=== PATIENT | female | born 1960 | race Two or more races ===

== ENCOUNTER 2017-07-01 23:21 | Inpatient (IN) | payer BC ==
[~2017-07-01] VITALS: Ht 152.4 cm; Wt 68.2 kg
[2017-07-02 00:40] LABS: Basophils # (auto) 0.1 uL; Basophils % (auto) 0.5 % (0.0-2.0); Eosinophils # (auto) 0.1 uL; Eosinophils % (auto) 0.7 % (0.0-7.0); Hematocrit 42.9 % (36.0-46.0); Hemoglobin 14.8 g/dL (12.2-16.2); Lymphocytes # (auto) 2.5 uL; Mean Corpuscular Hemoglobin 29.1 pg (28.0-32.0); Mean Corpuscular Hgb Conc. 34.4 g/dL (32.0-36.0); Mean Corpuscular Volume 84.5 fL (80.0-100.0); Monocytes # (auto) 0.7 uL; Monocytes % (auto) 4.8 % (0.0-12.0); Neutrophils # (auto) 11.9 uL; Platelet Count (auto) 306 10^3/uL (140-450); Red Blood Cells 5.08 10^6/uL (4.0-5.20); Red Cell Distribution Width 13.1 % (11.8-14.3); White Blood Cell 15.3 10^3/uL (4.4-10.8)
[2017-07-02 00:53] LABS: Albumin 4.1 g/dL (3.4-5.0); BUN/Creatinine Ratio 26.7; Calcium 8.8 mg/dL (8.5-10.1); Magnesium 2.1 mg/dL (1.6-2.6); Potassium 3.7 mmol/L (3.5-5.1)
[2017-07-02 00:55] LABS: INR 0.92 (0.9-1.15); Partial Thromboplastin Time 24.5 sec (22.64-33.71)
[2017-07-02 00:56] LABS: Urine Blood Normal /uL (Negative); Urine Specific Gravity 1.034 (1.001-1.035); Urine WBC <1 /hpf (0 - 5)
[2017-07-02 00:56] LABS: Bilirubin, Total 0.5 mg/dL (0.2-1.0); Total Protein 7.8 g/dL (6.4-8.2)
[2017-07-02 00:57] LABS: Urine Bacteria FEW /hpf (None Seen); Urine Mucus FEW (None Seen)
[2017-07-02] MEDS ORDERED: SODIUM CHLORIDE 0.9% 1,000 ML IVB ONE (06:37)
[2017-07-02] MEDS ORDERED: PANTOPRAZOLE 40 MG/10 ML VIAL IV STA (06:37)
[2017-07-02] MEDS ORDERED: ONDANSETRON HCL 4 MG/2 ML VIAL IV ONE ×2 (06:45→15:15)
[2017-07-02] MEDS ORDERED: HYDROmorphone HCL 2 MG/ML VL IV ONE (06:45)
[2017-07-02 07:34] LABS: Amylase 20 U/L (25-115); Lipase 119 U/L (73-393)
[2017-07-02] MEDS ORDERED: metroNIDAZOLE 500MG/100ML 100 ML IV ONE (08:30)
[2017-07-02] MEDS ORDERED: MORPHINE SULF INJ 2 MG/ML SYRINGE 1ML IV PRN (09:15)
[2017-07-02] MEDS ORDERED: ACETAMINOPHEN 325 MG TAB PO PRN (09:15)
[2017-07-02] MEDS ORDERED: DOCUSATE SOD 100 MG CAP PO PRN (09:15)
[2017-07-02] MEDS ORDERED: ONDANSETRON HCL 4 MG/2 ML VIAL IV PRN (09:15)
[2017-07-02] MEDS ORDERED: HYDROcodone-ACET 5/325MG TAB PO PRN (09:15)
[2017-07-02] MEDS ORDERED: DEXTROSE (50%) 50ML SYRG IV PRN (09:15)
[2017-07-02] MEDS ORDERED: TEMAZEPAM 15 MG CAP PO PRN (09:15)
[2017-07-02] MEDS: SODIUM CHLORIDE 0.9% 1,000 ML IV SCH ×2 (09:22→17:02)
[2017-07-02] MEDS: cefTRIAXone 1GM/10ml IVPUSH 10 ML IV SCH (09:35)
[2017-07-02] MEDS: FAMOTIDINE 20 MG TAB PO SCH ×2 (10:12→19:36)
[2017-07-02] MEDS: MULTIPLE VITAMIN TAB PO SCH (10:12)
[2017-07-02] MEDS: ZINC SULFATE 220 MG CAP PO SCH (10:12)
[2017-07-02] MEDS: ASCORBIC ACID 500 MG TAB PO SCH ×2 (10:12→19:36)
[2017-07-02] MEDS: ACCU-CHEK COMFORT CURVE STRIP VI SCH ×3 (12:05→21:22)
[2017-07-02] MEDS: InsuLIN REG 1unit/0.01ml Soln (100units/ml) SC SCH ×3 (12:05→21:23)
[2017-07-02] MEDS ORDERED: fentaNYL CITRATE 100 MCG/2 ML VL ONE ×2 (14:05→14:06)
[2017-07-02] MEDS ORDERED: PROPOFOL 10 MG/ML 20 ML IV ONE (14:05)
[2017-07-02] MEDS ORDERED: ROCURONIUM 10MG/ML 10ML VIAL IV ONE (14:05)
[2017-07-02] MEDS ORDERED: MIDAZOLAM HCL 1MG/1ML-2 ML VIAL ONE (14:08)
[2017-07-02] MEDS ORDERED: LABETALOL HCL 5 MG/ML ML 20ML VIAL IV ONE (14:26)
[2017-07-02] MEDS ORDERED: POVIDONE IODINE 10 % TOPICAL OINT 30GM TOP ONE (14:38)
[2017-07-02] MEDS ORDERED: ePHEDrine SULFATE 50 MG/ML AMP IV PRN (15:15)
[2017-07-02] MEDS ORDERED: HYDROmorphone HCL 2 MG/ML VL IV PRN (15:15)
[2017-07-02] MEDS ORDERED: hydrALAZINE HCL 20 MG/ML VL IV PRN (15:15)
[2017-07-02] MEDS: metroNIDAZOLE 500MG/100ML 100 ML IV SCH (17:02)
[2017-07-02 22:00] VITALS: BP 137/79
[2017-07-03 05:14] VITALS: BP 127/67
[2017-07-03] MEDS: SODIUM CHLORIDE 0.9% 1,000 ML IV SCH (05:31)
[2017-07-03] MEDS: ACCU-CHEK COMFORT CURVE STRIP VI SCH ×2 (06:09→11:30)
[2017-07-03] MEDS: InsuLIN REG 1unit/0.01ml Soln (100units/ml) SC SCH ×2 (06:10→11:30)
[2017-07-03 06:29] LABS: Basophils # (auto) 0 uL; Basophils % (auto) 0.2 % (0.0-2.0); Eosinophils # (auto) 0 uL; Hematocrit 39.4 % (36.0-46.0); Hemoglobin 13.6 g/dL (12.2-16.2); Lymphocytes # (auto) 1.6 uL; Lymphocytes % (auto) 10.7 % (10.0-50.0); Mean Corpuscular Hemoglobin 28.9 pg (28.0-32.0); Mean Corpuscular Hgb Conc. 34.6 g/dL (32.0-36.0); Mean Corpuscular Volume 83.5 fL (80.0-100.0); Monocytes # (auto) 0.9 uL; Monocytes % (auto) 5.9 % (0.0-12.0); Neutrophils # (auto) 12.5 uL; Neutrophils % (auto) 83.2 % (37.0-80.0); Platelet Count (auto) 304 10^3/uL (140-450); Red Blood Cells 4.72 10^6/uL (4.0-5.20); Red Cell Distribution Width 12.9 % (11.8-14.3)
[2017-07-03 06:49] LABS: Albumin 3.5 g/dL (3.4-5.0); BUN/Creatinine Ratio 19.3; Bilirubin, Total 0.5 mg/dL (0.2-1.0); Calcium 8.7 mg/dL (8.5-10.1); Potassium 3.7 mmol/L (3.5-5.1); Total Protein 6.9 g/dL (6.4-8.2)
[2017-07-03] MEDS: metroNIDAZOLE 500MG/100ML 100 ML IV SCH ×3 (08:59→16:43)
[2017-07-03] MEDS: cefTRIAXone 1GM/10ml IVPUSH 10 ML IV SCH (08:59)
[2017-07-03 09:00] VITALS: BP 127/63
[2017-07-03] MEDS: MULTIPLE VITAMIN TAB PO SCH (10:50)
[2017-07-03] MEDS: ZINC SULFATE 220 MG CAP PO SCH (10:50)
[2017-07-03] MEDS: FAMOTIDINE 20 MG TAB PO SCH (10:50)
[2017-07-03] MEDS: ASCORBIC ACID 500 MG TAB PO SCH (10:50)
[2017-07-03 13:00] VITALS: BP 147/75
[2017-07-03 16:52] VITALS: BP 147/75
[2017-07-03 17:00] VITALS: BP 145/78
== END 2017-07-03 18:15 | disposition home or self-care (01) | DRG 418 ==
LOC: ER 23:25 → OVERFLOW 23:26 → WEST WING 07-02 16:56
PROVIDERS: ADMIT Internal Medicine; ATTEND Family Medicine
PROC: 0FT44ZZ Resection of Gallbladder, Percutaneous Endoscopic Approach (ICD-10-PCS; principal; 2017-07-02 14:08)
DX: K80.00 Calculus of gallbladder with acute cholecystitis without obstruction (principal); N39.0 Urinary tract infection, site not specified; E11.21 Type 2 diabetes mellitus with diabetic nephropathy; E11.22 Type 2 diabetes mellitus with diabetic chronic kidney disease; E11.65 Type 2 diabetes mellitus with hyperglycemia; N18.2 Chronic kidney disease, stage 2 (mild); Z87.442 Personal history of urinary calculi
CPT/HCPCS: 36415; 71045; 76705; 80053; 81001; 82150; 82247; 82962; 83036; 83690; 83735; 84484; 85025; 85610; 85730; 86850; 86900; 86901; 87040; 87086; 93005; 94761; 96361; 96374; 96375; C9113; J1815; J2250; J2405; J2704; J3490

== ENCOUNTER 2020-03-07 13:04 | Emergency (ER) | payer BC ==
[~2020-03-07] VITALS: Ht 152.4 cm; Wt 62.1 kg
[2020-03-07 15:17] VITALS: BP 140/70
== END 2020-03-07 16:19 | disposition home or self-care (01) ==
LOC: ER 13:04
DX: M25.462 Effusion, left knee (principal); Z90.49 Acquired absence of other specified parts of digestive tract
CPT/HCPCS: 73562